=== PATIENT | male | born 1990 | race Caucasian/White ===

== ENCOUNTER 2016-11-19 19:05 | Emergency (ER) | payer OTHER ==
[2016-11-19 19:20] VITALS: BP 116/70; PULSE 68; RESP 18; TEMP 97.3
--- NOTE | 2016-11-19 20:51 | ED ---
Wound/Laceration HPI - General Chief Complaint: Wound/Laceration Stated Complaint: laceration,[facility] Time Seen by Provider: 11/19/16 20:34 Source: patient, RN notes reviewed Mode of arrival: ambulatory Limitations: no limitations - History of Present Illness Initial Comments: 26-year-old male presents emergency by chief complaint laceration to his left thumb. Patient states she was washing dishes when she condition was falling off a states he went to grab it and it cut his left thumb. Patient's tetanus is up-to-date within last 5 years. Denies any paresthesias. Patient is right- hand dominant. Patient denies any decreased range of motion. - Related Data Home Medications Medication Instructions Recorded Confirmed No Known Home Medications [No 11/19/16 11/19/16 Known Home Medications] Allergies Allergy/AdvReac Type Severity Reaction Status Date / Time No Known Allergies Allergy Verified 11/19/16 19:20 Review of Systems ROS Statement: Those systems with pertinent positive or pertinent negative responses have been documented in the HPI. ROS Other: All systems not noted in ROS Statement are negative. Past Medical History Past Medical History: No Reported History History of Any Multi-Drug Resistant Organisms: None Reported Past Surgical History: No Surgical Hx Reported Past Psychological History: No Psychological Hx Reported Smoking Status: Current every day smoker Past Alcohol Use History: None Reported Past Drug Use History: None Reported General Exam Limitations: no limitations General appearance: alert, in no apparent distress Respiratory exam: Present: normal lung sounds bilaterally. Absent: respiratory distress, wheezes, rales, rhonchi, stridor Cardiovascular Exam: Present: regular rate, normal rhythm, normal heart sounds. Absent: systolic murmur, diastolic murmur, rubs, gallop, clicks Extremities exam: Present: other (Left hand first digit there is a 2 cm laceration at the base of his thumb patient has full range of motion no tendon involvement full strength) Skin exam: Present: warm, dry Course Vital Signs 11/19/16 19:17 Temperature 97.3 F L Pulse Rate 68 Respiratory 18 Rate Blood Pressure 116/70 O2 Sat by Pulse 98 Oximetry Procedures - Laceration Laceration #1 Consent Obtained: verbal consent Indication: laceration Site: hand (Left hand first digit) Size (cm): 2 Description: linear Depth: simple, single layer Anesthetic Used: lidocaine 1%, without epi Anesthesia Technique: local infiltration Amount (mls): 4 Pre-repair: wound explored, irrigated extensively, deep structures intact Type of Sutures: nylon Size of Sutures: 4-0 Number of Sutures: 4 Technique: simple, interrupted Patient Tolerated Procedure: well, no complications Medical Decision Making - Medical Decision Making 26-year-old male present emergency department for laceration. This was repaired using suture. Patient will return in 10 days for suture removal wound care was discussed. Disposition Clinical Impression: Laceration of finger of left hand Disposition: HOME SELF-CARE Condition: Stable Instructions: Care For Your Stitches (ED), Finger Laceration (ED) Additional Instructions: Please return to the Emergency Department if symptoms worsen or any other concerns. Have sutures removed in 10 days. Referrals: None,Stated [Primary Care Provider] - 1-2 days Time of Disposition: 20:50
== END 2016-11-19 21:07 | disposition home or self-care (01) ==
LOC: EC 19:05
DX: S61.012A Laceration without foreign body of left thumb without damage to nail, initial encounter (principal); F17.200 Nicotine dependence, unspecified, uncomplicated; W26.8XXA Contact with other sharp object(s), not elsewhere classified, initial encounter; Y92.69 Other specified industrial and construction area as the place of occurrence of the external cause; Y99.0 Civilian activity done for income or pay; Y93.G1 Activity, food preparation and clean up
CPT/HCPCS: 12001; 99282

== ENCOUNTER 2017-09-22 14:32 | Emergency (ER) | payer OTHER ==
[2017-09-22] MEDS ORDERED: KETOROLAC 30 MG/ML 1 ML VIAL IVP STA (15:00)
[2017-09-22] MEDS ORDERED: SODIUM CHLORIDE 0.9% 1,000 ML IV STA ×2 (15:00)
[2017-09-22] MEDS ORDERED: LORazepam 1 MG TAB PO STA (15:00)
--- NOTE | 2017-09-22 15:03 | ED ---
Chest Pain HPI - General Chief Complaint: Chest Pain Stated Complaint: Chest pain Time Seen by Provider: 09/22/17 14:44 Source: patient, family, RN notes reviewed, old records reviewed Mode of arrival: ambulatory Limitations: no limitations - History of Present Illness Initial Comments: This patient is a 27-year-old male present to ED with chief complaint of chest pain. He reports that it started on Friday evening. He states at work it was worse. He was a worsening and he went home due to the chest pain. He states he feels like his heart is racing out of his chest. He states this happened once or twice and is past but nothing this persisted this long or been this painful. No nausea or vomiting. He reports he is occasionally short of breath. He reports the pain radiates down his left arm and into his neck. He reports family history of heart disease. He is a smoker. He reports a small dizzy and shaky.Patient denies any recent fever, chills, back pain, abdominal pain, nausea vomiting, numbness or tingling, dysuria or hematuria, constipation or diarrhea, headaches or visual changes, or any other current symptoms - Related Data Home Medications Medication Instructions Recorded Confirmed No Known Home Medications [No 11/19/16 09/22/17 Known Home Medications] Allergies Allergy/AdvReac Type Severity Reaction Status Date / Time No Known Allergies Allergy Verified 09/22/17 15:06 Review of Systems ROS Statement: Those systems with pertinent positive or pertinent negative responses have been documented in the HPI. ROS Other: All systems not noted in ROS Statement are negative. EKG Findings - EKG Comments: EKG Findings:: EKG shows normal sinus rhythm with sinus arrhythmia, rightward axis. Borderline EKG noted. Ventricular rate of 61 bpm. LA interval is 124 ms. QRS duration 108 ms. QT QTc is 380/382 ms. No evidence of ST elevation or T-wave inversion. Past Medical History Past Medical History: No Reported History History of Any Multi-Drug Resistant Organisms: None Reported Past Surgical History: No Surgical Hx Reported Past Psychological History: No Psychological Hx Reported Smoking Status: Current every day smoker Past Alcohol Use History: None Reported Past Drug Use History: Marijuana General Exam - General Exam Comments Initial Comments: 27-year-old male. No acute distress. Limitations: no limitations General appearance: alert, in no apparent distress Head exam: Present: atraumatic, normocephalic, normal inspection Eye exam: Present: normal appearance, PERRL, EOMI. Absent: scleral icterus, conjunctival injection, periorbital swelling ENT exam: Present: normal exam, mucous membranes moist Neck exam: Present: normal inspection. Absent: tenderness, meningismus, lymphadenopathy Respiratory exam: Present: normal lung sounds bilaterally. Absent: respiratory distress, wheezes, rales, rhonchi, stridor Cardiovascular Exam: Present: regular rate, normal rhythm, normal heart sounds. Absent: systolic murmur, diastolic murmur, rubs, gallop, clicks GI/Abdominal exam: Present: soft Extremities exam: Present: normal inspection, full ROM, normal capillary refill. Absent: tenderness, pedal edema, joint swelling, calf tenderness Back exam: Present: normal inspection Neurological exam: Present: alert, oriented X3, CN II-XII intact Psychiatric exam: Present: normal affect, normal mood Course Vital Signs 09/22/17 09/22/17 09/22/17 14:36 16:04 18:35 Temperature 97.9 F 98.6 F Pulse Rate 121 H 71 87 Respiratory 18 18 20 Rate Blood Pressure 123/89 130/85 119/73 O2 Sat by Pulse 99 98 99 Oximetry - Reevaluation(s) Reevaluation #1: 09/22/17 17:52 Patient was reevaluated and resting comfortably text on his phone. He states the setting chest discomfort reports he feels better after receiving the Ativan. Chest Pain MDM - MDM This patient is a 27-year-old male present to ED with chief complaint of chest pain. He reports that it started on Friday evening. He states at work it was worse. He was a worsening and he went home due to the chest pain. He states he feels like his heart is racing out of his chest. He states this happened once or twice and is past but nothing this persisted this long or been this painful. No nausea or vomiting. He reports he is occasionally short of breath. He reports the pain radiates down his left arm and into his neck. Patient labs were reviewed and unremarkable. Discussed with length of symptoms if this was cardiac related, there would be changes. Discussed that his use of amphetamine relate to tachycardia. HE does feel better after receiving ativan and heart rate decreased. Discussed follow up with PCP and cardio. Return parameters discussed. Disposition Clinical Impression: Chest pain, Amphetamine abuse Disposition: HOME SELF-CARE Condition: Good Instructions: Chest Pain (ED) Additional Instructions: Patient advised to follow-up with primary care provider. Discontinue amphetamine use that relates to her chest pain. Return to emergency department if any alarming signs or symptoms occur. Referrals: None,Stated [Primary Care Provider] - 1-2 days Marge Raphael MD [STAFF PHYSICIAN] - 1-2 days Time of Disposition: 18:45
[2017-09-22 15:43] LABS: Basophils % (A) 0 %; Eosinophils # (A) 0.1 k/uL (0-0.7); Eosinophils % (A) 1 %; HCT 50.4 % (39.0-53.0); HGB 17.2 gm/dL (13.0-17.5); Lymphocytes # (A) 3.1 k/uL (1.0-4.8); Lymphocytes % (A) 26 %; MCH 32.8 pg (25.0-35.0); MCHC 34.2 g/dL (31.0-37.0); Mean Platelet Volume 7.5; Monocytes # (A) 0.8 k/uL (0-1.0); Monocytes % (A) 7 %; Neutrophils # (A) 7.5 k/uL (1.3-7.7); Neutrophils % (A) 64 %; Platelet Count 429 k/uL (150-450); RBC 5.25 m/uL (4.30-5.90); RDW 12.8 % (11.5-15.5); WBC 11.6 k/uL (3.8-10.6)
[2017-09-22 15:48] LABS: ALT 24 U/L (21-72); AST 24 U/L (17-59); Albumin 4.9 g/dL (3.5-5.0); Alkaline Phosphatase 73 U/L (38-126); Anion Gap 18 mmol/L; Blood Urea Nitrogen 19 mg/dL (9-20); Calcium 10.8 mg/dL (8.4-10.2); Carbon Dioxide 21 mmol/L (22-30); Chloride 104 mmol/L (98-107); Glucose 90 mg/dL (74-99); Magnesium 1.9 mg/dL (1.6-2.3); Potassium 4.4 mmol/L (3.5-5.1); Sodium 143 mmol/L (137-145); Total Bilirubin 0.9 mg/dL (0.2-1.3); Total Protein 8.3 g/dL (6.3-8.2)
[2017-09-22 15:50] LABS: D-Dimer <0.17 mg/L FEU (<0.60); INR 1.1 (<1.2); Partial Thromboplastin Time 24.5 sec (22.0-30.0); Prothrombin Time 10.5 sec (9.0-12.0)
--- NOTE | 2017-09-22 15:57 | XR ---
EXAMINATION TYPE: XR chest 2V DATE OF EXAM: 09/22/2017 CLINICAL HISTORY: Chest pain TECHNIQUE: Frontal and lateral views of the chest are obtained. COMPARISON: None FINDINGS: There is no focal air space opacity, pleural effusion, or pneumothorax seen. The cardiac silhouette size is within normal limits. The osseous structures are intact. IMPRESSION: No acute cardiopulmonary process.
[2017-09-22 16:06] LABS: Creatine Kinase 52 U/L (55-170)
[2017-09-22 16:17] LABS: Creatine Kinase MB 0.6 ng/mL (0.0-2.4); Troponin I <0.012 ng/mL (0.000-0.034)
[2017-09-22 18:21] LABS: Appearance,Urine Clear (Clear); Bilirubin,Urine Negative (Negative); Blood,Urine Negative (Negative); Color,Urine Yellow; Glucose,Urine (UA) Negative (Negative); Ketones,Urine 2+ (Negative); Leukocyte Esterase,Urine Negative (Negative); Mucus,Urine Many /hpf; Nitrite,Urine Negative (Negative); PH, Urine 6.5 (5.0-8.0); Protein,Urine 1+ (Negative); RBC,Urine 3 /hpf (0-5); Specific Gravity,Urine 1.027 (1.001-1.035); Squamous Epithelial Cell,Urine 1 /hpf (0-4); WBC,Urine 1 /hpf (0-5)
[2017-09-22 18:25] LABS: Amphetamine Screen,Urine Detected (NotDetected); Barbiturate Screen,Urine Not Detected (NotDetected); Benzodiazepines Screen,Urine Not Detected (NotDetected); Cocaine Screen,Urine Not Detected (NotDetected); Methadone Screen, Urine Not Detected (NotDetected); Opiate Screen,Urine Not Detected (NotDetected); Oxycodone Screen, Urine Not Detected (NotDetected); Phencyclidine Screen,Urine Not Detected (NotDetected); Tricyclic Antidepressant,Urine Not Detected (NotDetected); Urn Cannabinoid Scrn Detected (NotDetected)
[2017-09-22 18:37] VITALS: BP 119/73; PULSE 87; RESP 20; TEMP 98.6
== END 2017-09-22 19:08 | disposition home or self-care (01) ==
LOC: EC 14:32
DX: F15.10 Other stimulant abuse, uncomplicated (principal); R07.9 Chest pain, unspecified; F17.200 Nicotine dependence, unspecified, uncomplicated
CPT/HCPCS: 36415; 93005; 85379; 83880; 80053; 82550; 82553; 83735; 84484; 85025; 85610; 85730; 81001; 80306; 71046; 99285; 96374; 96361 ×4; J1885

== ENCOUNTER 2019-01-26 08:55 | Emergency (ER) | payer OTHER ==
[2019-01-26 09:00] VITALS: BP 130/89; PULSE 117; RESP 18; TEMP 97.3
[2019-01-26] MEDS ORDERED: PENICILLIN VK 500MG STARTER 4 TAB BTL PO STA (09:12)
[2019-01-26] MEDS ORDERED: ACET/COD 300 MG/30 MG STARTER PACK 6 TAB BTL PO STA (09:12)
--- NOTE | 2019-01-26 09:20 | ED ---
ENT HPI - General Chief complaint: Dental/Oral Stated complaint: Dental Pain Time Seen by Provider: 01/26/19 09:01 Source: patient, RN notes reviewed, old records reviewed Mode of arrival: ambulatory Limitations: no limitations - History of Present Illness Initial comments: Patient is a 28-year-old male presents emergency department today for evaluation for upper and lower right-sided dental pain. Patient reports that he has had no fevers or chills. Denies trismus. Patient reportedly has had no dental care and does not see a dentist. Patient states that he has had no neck pain or headaches. Patient reports he woke up today with the pain. - Related Data Previous Rx's Medication Instructions Recorded Ibuprofen 600 mg PO TID #20 tablet 01/26/19 Penicillin V Potassium [Pen Vee K] 500 mg PO QID #40 tablet 01/26/19 Allergies Allergy/AdvReac Type Severity Reaction Status Date / Time No Known Allergies Allergy Verified 01/26/19 09:11 Review of Systems ROS Statement: Those systems with pertinent positive or pertinent negative responses have been documented in the HPI. ROS Other: All systems not noted in ROS Statement are negative. Past Medical History Past Medical History: No Reported History History of Any Multi-Drug Resistant Organisms: None Reported Past Surgical History: No Surgical Hx Reported Past Psychological History: No Psychological Hx Reported Smoking Status: Current every day smoker Past Alcohol Use History: None Reported Past Drug Use History: Marijuana General Exam - General Exam Comments Initial Comments: This is a 28-year-old male. Alert and oriented. Patient appears in moderate discomfort. Clutching the right side of his face. Limitations: no limitations General appearance: alert, in no apparent distress Head exam: Present: atraumatic, normocephalic, normal inspection Eye exam: Present: normal appearance ENT exam: Present: normal exam, mucous membranes moist. Absent: normal oropharynx (Patient has poor dentition. Multiple dental caries noted throughout entire mouth. Patient has gingival swelling over tooth 4544 and 46.) Neck exam: Present: normal inspection. Absent: tenderness, meningismus, lymphadenopathy Respiratory exam: Present: normal lung sounds bilaterally. Absent: respiratory distress, wheezes, rales, rhonchi, stridor Cardiovascular Exam: Present: regular rate, normal rhythm, normal heart sounds. Absent: systolic murmur, diastolic murmur, rubs, gallop, clicks Extremities exam: Present: normal inspection Back exam: Present: normal inspection Neurological exam: Present: alert, oriented X3, CN II-XII intact Psychiatric exam: Present: normal affect, normal mood Skin exam: Present: warm, dry, intact, normal color. Absent: rash Course Vital Signs 01/26/19 08:58 Temperature 97.3 F L Pulse Rate 117 H Respiratory 18 Rate Blood Pressure 130/89 O2 Sat by Pulse 98 Oximetry Medical Decision Making - Medical Decision Making This patient's a 28-year-old male presents today for right lower dental pain. He is evidence of poor dentition. Gingival erythema and swelling noted over tooth 45 and 46. Patient was given Tylenol codeine starter pack and Pen-Vee K. Discussed Patient is follow-up dental clinic likely for tooth erosion, and needing all teeth pulled. Patient will be discharged at this time with close f ollow-up with dental clinic. Disposition Clinical Impression: Pain, dental Disposition: HOME SELF-CARE Condition: Good Instructions (If sedation given, give patient instructions): Toothache (ED) Additional Instructions: Patient is advised to have close follow-up with dental clinic. Take the medications as prescribed. Return to the emergency department if any alarming signs or symptoms occur. Take Motrin Tylenol for pain. [facility] [place] [id number] [place] [address] [phone] (existing clients only) For new clients: [phone] 1st consult: $50 (includes Xrays) Usually 30% less then private dentist for visits after. [employer] Have to pay $50 for Xrays anmd rest is covered. [phone] Prescriptions: Ibuprofen 600 mg PO TID #20 tablet Penicillin V Potassium [Pen Vee K] 500 mg PO QID #40 tablet Is patient prescribed a controlled substance at d/c from ED?: No Referrals: None,Stated [Primary Care Provider] - 1-2 days Marge Raphael MD [STAFF PHYSICIAN] - 1-2 days Time of Disposition: 09:18
== END 2019-01-26 09:25 | disposition home or self-care (01) ==
LOC: EC 08:55
DX: K02.9 Dental caries, unspecified (principal); K06.8 Other specified disorders of gingiva and edentulous alveolar ridge; F17.200 Nicotine dependence, unspecified, uncomplicated
CPT/HCPCS: 99283

== ENCOUNTER 2019-04-04 17:39 | Emergency (ER) | payer OTHER ==
[2019-04-04 17:44] VITALS: BP 122/82; PULSE 96; RESP 16; TEMP 97.6
[2019-04-04] MEDS ORDERED: ACET/COD 300 MG/30 MG STARTER PACK 6 TAB BTL PO STA (18:05)
--- NOTE | 2019-04-04 18:05 | ED ---
ENT HPI - General Chief complaint: Dental/Oral Stated complaint: dental pain Time Seen by Provider: 04/04/19 17:46 Source: patient Mode of arrival: ambulatory Limitations: no limitations - History of Present Illness Initial comments: Patient is a 28-year-old male with history of poor dentition is presenting to emergency Department with a chief complaint of dental pain. Patient reports she does not have a dentist and has had difficulties with his teeth for most of his life. Patient reports pain in upper lower jaw. However, he states the most of his pain is located in the bottom left jaw. Patient reports the most of his teeth have either eroded or fractured. Patient reports most current pain started about 2 days ago and has gradually increased in severity. Patient reports difficulty eating due to the pain. Patient denies any radiation of the pain. Patient denies any swelling to his face. Patient denies any fevers night sweats or chills. Patient reports taking [id number] analgesics minimal improvement. - Related Data Previous Rx's Medication Instructions Recorded Ibuprofen 600 mg PO TID #20 tablet 01/26/19 Penicillin V Potassium [Pen Vee K] 500 mg PO QID #40 tablet 01/26/19 Amoxicillin/Potassium Clav 1 tab PO Q12HR #20 tab 04/04/19 [Augmentin 875-125 Tablet] Allergies Allergy/AdvReac Type Severity Reaction Status Date / Time No Known Allergies Allergy Verified 04/04/19 17:44 Review of Systems ROS Statement: Those systems with pertinent positive or pertinent negative responses have been documented in the HPI. ROS Other: All systems not noted in ROS Statement are negative. Past Medical History Past Medical History: No Reported History History of Any Multi-Drug Resistant Organisms: None Reported Past Surgical History: No Surgical Hx Reported Past Psychological History: No Psychological Hx Reported Smoking Status: Current every day smoker Past Alcohol Use History: None Reported Past Drug Use History: Marijuana General Exam Limitations: no limitations General appearance: alert, in no apparent distress Head exam: Present: atraumatic, normocephalic, normal inspection Eye exam: Present: normal appearance Pupils: Present: normal accommodation ENT exam: Present: normal exam, mucous membranes moist, TM's normal bilaterally, normal external ear exam. Absent: normal oropharynx (Multiple fractured teeth, caries and erosion. No signs of a periapical abscess. No signs of any oral lesions. Gum disease evident.) Neck exam: Present: normal inspection, full ROM Respiratory exam: Present: normal lung sounds bilaterally Cardiovascular Exam: Present: regular rate, normal rhythm, normal heart sounds Extremities exam: Present: normal inspection, full ROM Back exam: Present: normal inspection, full ROM Neurological exam: Present: alert, oriented X3 Psychiatric exam: Present: normal affect, normal mood Skin exam: Present: warm, intact, normal color Course Vital Signs 04/04/19 17:42 Temperature 97.6 F Pulse Rate 96 Respiratory 16 Rate Blood Pressure 122/82 O2 Sat by Pulse 98 Oximetry Medical Decision Making - Medical Decision Making patient is a 28-year-old male with history of poor dentition is presenting to the emergency department with a chief complaint of dental pain. Patient does not see a dentist and has pain on upper and lower jaw. On physical examination I see any signs of immediate. Apical abscesses however there could be an early infection due to the multiple fractured, eroded teeth. We will treat the patient with Augmentin. Patient mostly given Tylenol 3 starter pack. Patient given contact information for the [facility] for free dental work. Strict return parameters were thoroughly discussed with patient was understanding and agreeable. Patient advised about the possible side effects of Tylenol 3. Case discussed with physician. Disposition Clinical Impression: Pain, dental, Dental infection Disposition: HOME SELF-CARE Condition: Stable Instructions (If sedation given, give patient instructions): Toothache (ED) Additional Instructions: Please take prescribed medication as directed. Please attempt to see a dentist at [facility]. Please return to emergency department if symptoms worsen. Prescriptions: Amoxicillin/Potassium Clav [Augmentin 875-125 Tablet] 1 tab PO Q12HR #20 tab Is patient prescribed a controlled substance at d/c from ED?: No Referrals: None,Stated [Primary Care Provider] - 1-2 days Time of Disposition: 18:05
== END 2019-04-04 18:12 | disposition home or self-care (01) ==
LOC: EC 17:39
DX: K04.7 Periapical abscess without sinus (principal); K08.89 Other specified disorders of teeth and supporting structures; S02.5XXA Fracture of tooth (traumatic), initial encounter for closed fracture; F17.200 Nicotine dependence, unspecified, uncomplicated; X58.XXXA Exposure to other specified factors, initial encounter
CPT/HCPCS: 99282

== ENCOUNTER 2020-09-13 09:42 | Emergency (ER) | payer OTHER ==
[2020-09-13 09:49] VITALS: TEMP 98.1
[2020-09-13] MEDS ORDERED: ACETAMINOPHEN TAB 500 MG TAB PO STA (10:06)
--- NOTE | 2020-09-13 10:08 | ED ---
General Adult HPI - General Chief complaint: Headache Stated complaint: Headache/ache/fever Time Seen by Provider: 09/13/20 09:57 Source: patient, RN notes reviewed Mode of arrival: ambulatory Limitations: no limitations - History of Present Illness Initial comments: 30-year-old male presents emergency Department chief complaint of body aches chills headache. Patient states symptoms started last couple days. Patient states that cough and slight shortness of breath. Patient denies any major significant past medical history. Patient has not taken recent Tylenol Motrin no vomiting diarrhea or dysuria. Patient denies any known sick contacts. - Related Data Previous Rx's Medication Instructions Recorded Ibuprofen 600 mg PO TID #20 tablet 01/26/19 Penicillin V Potassium [Pen Vee K] 500 mg PO QID #40 tablet 01/26/19 Amoxicillin/Potassium Clav 1 tab PO Q12HR #20 tab 04/04/19 [Augmentin 875-125 Tablet] Allergies Allergy/AdvReac Type Severity Reaction Status Date / Time No Known Allergies Allergy Verified 09/13/20 09:47 Review of Systems ROS Statement: Those systems with pertinent positive or pertinent negative responses have been documented in the HPI. ROS Other: All systems not noted in ROS Statement are negative. Past Medical History Past Medical History: No Reported History History of Any Multi-Drug Resistant Organisms: None Reported Past Surgical History: No Surgical Hx Reported Past Psychological History: No Psychological Hx Reported Smoking Status: Current every day smoker Past Alcohol Use History: None Reported Past Drug Use History: Marijuana General Exam Limitations: no limitations General appearance: alert, in no apparent distress Head exam: Present: atraumatic, normocephalic, normal inspection Eye exam: Present: normal appearance, PERRL, EOMI. Absent: scleral icterus, conjunctival injection, periorbital swelling ENT exam: Present: normal exam, normal oropharynx, mucous membranes moist Neck exam: Present: normal inspection, full ROM. Absent: tenderness, meningismus, lymphadenopathy Respiratory exam: Present: normal lung sounds bilaterally. Absent: respiratory distress, wheezes, rales, rhonchi, stridor Cardiovascular Exam: Present: normal rhythm, tachycardia, normal heart sounds. Absent: systolic murmur, diastolic murmur, rubs, gallop, clicks GI/Abdominal exam: Present: soft, normal bowel sounds. Absent: distended, tenderness, guarding, rebound, rigid Neurological exam: Present: alert, oriented X3, CN II-XII intact, reflexes normal. Absent: motor sensory deficit Skin exam: Present: warm, dry, intact, normal color. Absent: rash Course Vital Signs 09/13/20 09:47 Temperature 98.1 F Pulse Rate 117 H Respiratory 20 Rate Blood Pressure 129/88 O2 Sat by Pulse 99 Oximetry Medical Decision Making - Medical Decision Making Patient is positive for covid patient will be discharged in stable condition vitals are stable. - Lab Data Lab Results 09/13/20 Range/Units 10:04 Coronavirus (PCR) Detected A (Not Detectd) Disposition Clinical Impression: COVID-19 Disposition: HOME SELF-CARE Condition: Stable Instructions (If sedation given, give patient instructions): Coronavirus Disease 2019 (COVID-19) Additional Instructions: Please return to the Emergency Department if symptoms worsen or any other concerns. Is patient prescribed a controlled substance at d/c from ED?: No Referrals: None,Stated [Primary Care Provider] - 1-2 days Time of Disposition: 10:45
[2020-09-13 10:54] VITALS: BP 123/84; PULSE 98; RESP 18
== END 2020-09-13 10:54 | disposition home or self-care (01) ==
LOC: EC 09:42
DX: U07.1 COVID-19 (principal); F17.200 Nicotine dependence, unspecified, uncomplicated; F12.90 Cannabis use, unspecified, uncomplicated
CPT/HCPCS: 87635; 99284

== ENCOUNTER 2021-06-21 12:49 | Emergency (ER) | payer OTHER ==
[2021-06-21 13:47] VITALS: BP 119/79; PULSE 63; RESP 18; TEMP 98.9
--- NOTE | 2021-06-21 14:39 | ED ---
URI HPI - General Chief Complaint: Upper Respiratory Infection Stated Complaint: COVID test Time Seen by Provider: 06/21/21 14:37 Source: patient, RN notes reviewed Mode of arrival: ambulatory Limitations: no limitations - History of Present Illness Initial Comments: 30-year-old male presents emergency Department chief complaint of wantin testing. Patient states he felt cold and states that he felt that his taste and smell soft. Patient states he has no other symptoms. Denies knowing any exact exposures. Patient offers no complaints. - Related Data Previous Rx's Medication Instructions Recorded Ibuprofen 600 mg PO TID #20 tablet 01/26/19 Penicillin V Potassium [Pen Vee K] 500 mg PO QID #40 tablet 01/26/19 Amoxicillin/Potassium Clav 1 tab PO Q12HR #20 tab 04/04/19 [Augmentin 875-125 Tablet] Allergies Allergy/AdvReac Type Severity Reaction Status Date / Time No Known Allergies Allergy Verified 06/21/21 13:47 Review of Systems ROS Statement: Those systems with pertinent positive or pertinent negative responses have been documented in the HPI. ROS Other: All systems not noted in ROS Statement are negative. Past Medical History Past Medical History: No Reported History History of Any Multi-Drug Resistant Organisms: None Reported Past Surgical History: No Surgical Hx Reported Past Psychological History: No Psychological Hx Reported Smoking Status: Current every day smoker Past Alcohol Use History: None Reported Past Drug Use History: Marijuana General Exam Limitations: no limitations General appearance: alert, in no apparent distress Head exam: Present: atraumatic, normocephalic, normal inspection Eye exam: Present: normal appearance, PERRL, EOMI. Absent: scleral icterus, conjunctival injection, periorbital swelling ENT exam: Present: normal exam, normal oropharynx, mucous membranes moist Neck exam: Present: normal inspection, full ROM. Absent: tenderness, meningismus, lymphadenopathy Respiratory exam: Present: normal lung sounds bilaterally. Absent: respiratory distress, wheezes, rales, rhonchi, stridor Cardiovascular Exam: Present: regular rate, normal rhythm, normal heart sounds. Absent: systolic murmur, diastolic murmur, rubs, gallop, clicks Course Vital Signs 06/21/21 13:45 Temperature 98.9 F Pulse Rate 63 Respiratory 18 Rate Blood Pressure 119/79 O2 Sat by Pulse 99 Oximetry Medical Decision Making - Medical Decision Making Patient's covid 19 negative. Patient discharged in stable condition. - Lab Data Lab Results 06/21/21 Range/Units 13:49 Coronavirus (PCR) Not Detected (Not Detectd) Disposition Clinical Impression: Encounter for screening laboratory testing for COVID-19 virus, Acute upper respiratory infection Disposition: HOME SELF-CARE Condition: Stable Instructions (If sedation given, give patient instructions): Upper Respiratory Infection (ED) Additional Instructions: Please return to the Emergency Department if symptoms worsen or any other concerns. Is patient prescribed a controlled substance at d/c from ED?: No Referrals: None,Stated [Primary Care Provider] - 1-2 days Time of Disposition: 14:39
== END 2021-06-21 15:11 | disposition home or self-care (01) ==
LOC: EC 12:49
DX: U07.1 COVID-19 (principal); J06.9 Acute upper respiratory infection, unspecified; F17.200 Nicotine dependence, unspecified, uncomplicated; Z20.822 Contact with and (suspected) exposure to COVID-19
CPT/HCPCS: 87635; 99283

== ENCOUNTER 2022-01-04 12:01 | Emergency (ER) | payer OTHER ==
[2022-01-04 12:04] VITALS: BP 124/85; PULSE 79; RESP 20; TEMP 98.6
[2022-01-04] MEDS ORDERED: ACET/COD 300 MG/30 MG STARTER PACK 6 TAB BTL PO STA (12:29)
--- NOTE | 2022-01-04 12:29 | ED ---
General Adult HPI - General Chief complaint: Dental/Oral Stated complaint: Abcess tooth Time Seen by Provider: 01/04/22 12:05 Source: patient, RN notes reviewed, old records reviewed Mode of arrival: ambulatory Limitations: no limitations - History of Present Illness Initial comments: This is a 31-year-old male presents emergency Department complaining of tooth pain in the lower right incisor area. Patient states he doesn't feel any bump or lump. Patient states it just started this morning. Patient states in the past and got really bad because he has severe dental caries and they've turned into abscesses so he came in early. Patient states he does not have a dentist. Patient denies any drug use. Patient denies any fever chills. Patient denies any neck pain or radiation of the pain from the area of the right lower incisor - Related Data Previous Rx's Medication Instructions Recorded Ibuprofen 600 mg PO TID #20 tablet 01/26/19 Penicillin V Potassium [Pen Vee K] 500 mg PO QID #40 tablet 01/26/19 Amoxicillin/Potassium Clav 1 tab PO Q12HR #20 tab 04/04/19 [Augmentin 875-125 Tablet] Amoxicillin 500 mg PO Q8H #30 capsule 01/04/22 Ibuprofen [Motrin] 600 mg PO Q6HR PRN #20 tab 01/04/22 Allergies Allergy/AdvReac Type Severity Reaction Status Date / Time No Known Allergies Allergy Verified 01/04/22 12:04 Review of Systems ROS Statement: Those systems with pertinent positive or pertinent negative responses have been documented in the HPI. ROS Other: All systems not noted in ROS Statement are negative. Past Medical History Past Medical History: No Reported History History of Any Multi-Drug Resistant Organisms: None Reported Past Surgical History: No Surgical Hx Reported Past Psychological History: No Psychological Hx Reported Smoking Status: Current every day smoker Past Alcohol Use History: None Reported Past Drug Use History: Marijuana General Exam - General Exam Comments Initial Comments: GENERAL Patient is well-developed and well-nourished. Patient is in mild distress. EYES Patient's pupils are equal and round. Extraocular motion is intact SKIN Unremarkable NEURO The patient is alert and oriented 3 PYSCH Patient has normal interpersonal interactions. MUSCULOSKELETAL All 4 times and full range of motion. TEETH Patient has some tenderness in the gumline of the incisor on the lower right there is no area of fluctuance no masses felt. Patient has severe dental caries and is missing multiple teeth. Limitations: no limitations Course Vital Signs 01/04/22 12:02 Temperature 98.6 F Pulse Rate 79 Respiratory 20 Rate Blood Pressure 124/85 O2 Sat by Pulse 97 Oximetry Disposition Clinical Impression: Toothache Disposition: HOME SELF-CARE Instructions (If sedation given, give patient instructions): Toothache (ED) Prescriptions: Amoxicillin 500 mg PO Q8H #30 capsule Ibuprofen [Motrin] 600 mg PO Q6HR PRN #20 tab PRN Reason: For pain Is patient prescribed a controlled substance at d/c from ED?: No Referrals: None,Stated [Primary Care Provider] - 1-2 days Time of Disposition: 12:28
== END 2022-01-04 12:35 | disposition home or self-care (01) ==
LOC: EC 12:01
DX: K08.89 Other specified disorders of teeth and supporting structures (principal); F17.200 Nicotine dependence, unspecified, uncomplicated

== ENCOUNTER 2022-04-22 22:49 | Emergency (ER) | payer OTHER ==
[2022-04-22 23:05] VITALS: BP 114/66; PULSE 78; RESP 16; TEMP 98.7
[2022-04-22] MEDS ORDERED: AMOXIC-POT CLAV 875MG STARTER PACK 2 TAB BTL PO STA (23:37)
[2022-04-22] MEDS ORDERED: AMOXIC-POT CLAV 875-125MG 1 EACH TAB PO STA (23:37)
[2022-04-22] MEDS ORDERED: Acetaminophen-Codeine 300-30mg TAB PO STA (23:37)
[2022-04-22] MEDS ORDERED: ACET/COD 300 MG/30 MG STARTER PACK 6 TAB BTL PO STA (23:37)
--- NOTE | 2022-04-22 23:40 | ED ---
ENT HPI - General Chief complaint: Dental/Oral Stated complaint: Dental Pain Time Seen by Provider: 04/22/22 23:18 Source: patient, RN notes reviewed, old records reviewed Mode of arrival: ambulatory Limitations: no limitations - History of Present Illness Initial comments: This is a 31-year-old male to the emergency department for evaluation. Patient presents today presents for evaluation of severe tooth pain. Patient has had history of abscess is extraction. No medical history takes no medications is no ALLERGIES. MD complaint: tooth pain, ear pain -: days(s) Location: tooth # Severity: moderate Severity scale (1-10): 7 Quality: sharp Consistency: constant Improves with: none Worsens with: none Context-Epistaxis: history of similar Context- Dental: history of dental caries Context- Ear: other Associated Symptoms: sore throat - Related Data Previous Rx's Medication Instructions Recorded Ibuprofen 600 mg PO TID #20 tablet 01/26/19 Penicillin V Potassium [Pen Vee K] 500 mg PO QID #40 tablet 01/26/19 Amoxicillin/Potassium Clav 1 tab PO Q12HR #20 tab 04/04/19 [Augmentin 875-125 Tablet] Amoxicillin 500 mg PO Q8H #30 capsule 01/04/22 Amoxic-Pot Clav 875-125Mg 1 tab PO Q12HR #20 tablet 04/22/22 [Augmentin 875-125] Ibuprofen [Motrin] 600 mg PO Q6HR PRN #20 tab 04/22/22 Allergies Allergy/AdvReac Type Severity Reaction Status Date / Time No Known Allergies Allergy Verified 01/04/22 12:04 Review of Systems ROS Statement: Those systems with pertinent positive or pertinent negative responses have been documented in the HPI. ROS Other: All systems not noted in ROS Statement are negative. Past Medical History Past Medical History: No Reported History History of Any Multi-Drug Resistant Organisms: None Reported Past Surgical History: No Surgical Hx Reported Past Psychological History: No Psychological Hx Reported Smoking Status: Current every day smoker Past Alcohol Use History: None Reported Past Drug Use History: Marijuana General Exam Limitations: no limitations Course Vital Signs 04/22/22 23:03 Temperature 98.7 F Pulse Rate 78 Respiratory 16 Rate Blood Pressure 114/66 O2 Sat by Pulse 97 Oximetry - Reevaluation(s) Reevaluation #1: 04/22/22 Medical record is reviewed Reevaluation #2: 04/22/22 Patient informed results and questions answered Reevaluation #3: 04/22/22 Patient improvement be discharged home Medical Decision Making - Medical Decision Making 31 female to the emergency department for evaluation. Patient symptoms are improved and can be discharged home Disposition Clinical Impression: Dental abscess, Dental caries, Chronic dental pain Disposition: HOME SELF-CARE Condition: Good Instructions (If sedation given, give patient instructions): Dental Abscess (ED), Toothache (ED) Prescriptions: Amoxic-Pot Clav 875-125Mg [Augmentin 875-125] 1 tab PO Q12HR #20 tablet Ibuprofen [Motrin] 600 mg PO Q6HR PRN #20 tab PRN Reason: For pain Is patient prescribed a controlled substance at d/c from ED?: No Referrals: None,Stated [Primary Care Provider] - 1-2 days Time of Disposition: 23:45
== END 2022-04-22 23:51 | disposition home or self-care (01) ==
LOC: EC 22:49
DX: K04.7 Periapical abscess without sinus (principal); K02.9 Dental caries, unspecified; F17.200 Nicotine dependence, unspecified, uncomplicated; F12.90 Cannabis use, unspecified, uncomplicated; Z79.899 Other long term (current) drug therapy
CPT/HCPCS: 99283

== ENCOUNTER 2022-06-01 16:36 | Emergency (ER) | payer OTHER ==
[2022-06-01 16:48] VITALS: TEMP 97.8
[2022-06-01] MEDS ORDERED: IBUPROFEN 400 MG TAB PO STA (17:07)
--- NOTE | 2022-06-01 17:36 | ED ---
URI HPI - General Chief Complaint: Upper Respiratory Infection Stated Complaint: medical clearance Time Seen by Provider: 06/01/22 16:52 Source: patient Mode of arrival: ambulatory Limitations: no limitations - History of Present Illness Initial Comments: Patient is a 31-year-old male who presents to the emergency department with a chief complaint of body aches and chills. Patient states he started feeling sick at work yesterday. He presents for medical clearance. He denies history of asthma and COPD. Denies chest pain and shortness of breath. - Related Data Previous Rx's Medication Instructions Recorded Ibuprofen 600 mg PO TID #20 tablet 01/26/19 Penicillin V Potassium [Pen Vee K] 500 mg PO QID #40 tablet 01/26/19 Amoxicillin/Potassium Clav 1 tab PO Q12HR #20 tab 04/04/19 [Augmentin 875-125 Tablet] Amoxicillin 500 mg PO Q8H #30 capsule 01/04/22 Amoxic-Pot Clav 875-125Mg 1 tab PO Q12HR #20 tablet 04/22/22 [Augmentin 875-125] Ibuprofen [Motrin] 600 mg PO Q6HR PRN #20 tab 04/22/22 Allergies Allergy/AdvReac Type Severity Reaction Status Date / Time No Known Allergies Allergy Verified 06/01/22 16:48 Review of Systems ROS Statement: Those systems with pertinent positive or pertinent negative responses have been documented in the HPI. ROS Other: All systems not noted in ROS Statement are negative. Past Medical History Past Medical History: No Reported History History of Any Multi-Drug Resistant Organisms: None Reported Past Surgical History: No Surgical Hx Reported Past Psychological History: No Psychological Hx Reported Smoking Status: Current every day smoker Past Alcohol Use History: None Reported Past Drug Use History: Marijuana General Exam Limitations: no limitations General appearance: alert, in no apparent distress Head exam: Present: atraumatic, normocephalic, normal inspection Respiratory exam: Present: normal lung sounds bilaterally. Absent: respiratory distress, wheezes, rales, rhonchi, stridor Cardiovascular Exam: Present: regular rate, normal rhythm, normal heart sounds. Absent: systolic murmur, diastolic murmur, rubs, gallop, clicks Neurological exam: Present: alert, oriented X3, CN II-XII intact Psychiatric exam: Present: normal affect, normal mood Skin exam: Present: warm, dry, intact, normal color. Absent: rash Course Vital Signs 06/01/22 06/01/22 16:46 17:50 Temperature 97.8 F Pulse Rate 100 93 Respiratory 20 18 Rate Blood Pressure 113/91 116/76 O2 Sat by Pulse 98 97 Oximetry Medical Decision Making - Medical Decision Making This is a 31-year-old presenting for medical clearance. COVID-19 is detected. Patient looks well, no abnormal lung sounds, no fever, he will be discharged home with work note. Quarantine instructions discussed. Dr. Nieto is my attending. - Lab Data Lab Results 06/01/22 Range/Units 16:50 Influenza Type A (PCR) Not Detected (Not Detectd) Influenza Type B (PCR) Not Detected (Not Detectd) RSV (PCR) Not Detected (Not Detectd) SARS-CoV-2 (PCR) Detected A (Not Detectd) Disposition Clinical Impression: COVID-19 Disposition: HOME SELF-CARE Condition: Good Instructions (If sedation given, give patient instructions): Coronavirus Disease 2019 (COVID-19) Additional Instructions: Quarantine at home for 5 days. Wear a mask for 10 days or longer if symptoms continue. Follow-up with primary care provider in one to 2 days. Return to the emergency Department if you experience new, concerning, or worsening symptoms. Is patient prescribed a controlled substance at d/c from ED?: No Referrals: None,Stated [Primary Care Provider] - 1-2 days Time of Disposition: 17:36
[2022-06-01 17:51] VITALS: BP 116/76; PULSE 93; RESP 18
== END 2022-06-01 17:51 | disposition home or self-care (01) ==
LOC: EC 16:36
DX: U07.1 COVID-19 (principal); F17.200 Nicotine dependence, unspecified, uncomplicated; F12.90 Cannabis use, unspecified, uncomplicated
CPT/HCPCS: 87636; 99283